=== PATIENT | female | born 1970 | race Caucasian/White ===

== ENCOUNTER 2018-04-02 15:38 | Outpatient (REF) | payer OTHER, SELFPAY ==
--- NOTE | 2018-04-02 14:30 | PAPFT_PTH ---
PATIENT: Taylor Chou LOC: [facility] U#:[id number] AGE/SX: 47/F ROOM: RE04/02/[address]: Brandie Weeks : 1970 BED: DIS: 04/02/2018 SPEC #: [id number] RECD: 04/02/18 17:55 STATUS: KARMA REJez #: [id number] BRYAN: 04/02/18 14:[address]: Brandie Weeks DEPT: [facility] Cytology RECD BY: Edith Garcia Tissues: 1 - CX/ENDOCX FOR PAP SMEARS Procedures: PAP THIN PREP/UVM Screening HPV DNA PROBE Comments: [id number]
== END 2018-04-02 15:58 ==
LOC: NCHCN 15:38
PROVIDERS: PCP Nurse Practitioner Family; Visit Provider Nurse Practitioner Family
DX: Z00.00 Encounter for general adult medical examination without abnormal findings (principal); Z12.4 Encounter for screening for malignant neoplasm of cervix; Z11.51 Encounter for screening for human papillomavirus (HPV)
CPT/HCPCS: 88142; 87624

== ENCOUNTER 2019-04-18 12:05 | Outpatient (REF) | payer OTHER, SELFPAY ==
[2019-04-18 12:30] LABS: Anion Gap 8.8 mmol/L (3-11); BUN 13 mg/dL (7-18); CO2 30.2 mmol/L (21.0-32.0); CREATININE 0.85 mg/dL (0.55-1.02); Calcium 8.7 mg/dL (8.5-10.1); Calculated LDL 137 mg/dL (<100); Chloride 104 mmol/L (98-107); Cholesterol 205 mg/dL (<200); Glucose 85 mg/dL (74-106); HDL Cholesterol 38 mg/dL (40-60); Potassium 4.1 mmol/L (3.5-5.1); Sodium 143 mmol/L (136-145); Triglyceride 150 mg/dL (<150)
== END 2019-04-18 12:25 ==
LOC: NCHCN 12:05
PROVIDERS: PCP Nurse Practitioner Family; Visit Provider Nurse Practitioner Family
DX: E78.1 Pure hyperglyceridemia (principal); Z00.00 Encounter for general adult medical examination without abnormal findings
CPT/HCPCS: 80048; 80061

== ENCOUNTER 2020-03-20 11:41 | Emergency (ER) | payer SELFPAY ==
--- NOTE | 2020-03-20 11:43 | NUR.NOTE ---
Nursing Note: per funds transfer clerk--left atrium area when told by them that she could not have a visitor come in with her.
== END 2020-03-20 11:45 | disposition left before discharge ==
LOC: ER 11:44
PROVIDERS: PCP Nurse Practitioner Family
DX: Z53.21 Procedure and treatment not carried out due to patient leaving prior to being seen by health care provider (principal)

== ENCOUNTER 2020-03-20 13:52 | Emergency (ER) | payer OTHER, SELFPAY ==
[2020-03-20] VITALS (40 sets, daily range): BP systolic 106–144; BP diastolic 51–97; PULSE 53–73; RESP 12–22; TEMP 36.3–36.6; O2SAT 98–100
--- NOTE | 2020-03-20 13:45 | RT.EKG_ITS ---
APPROVED REPORT Exam: Resting ECG Patient Location: E HR:66 bpm ECG Measurements Heart Rate 66 AXIS VA 171 P 82 QRSd 115 QRS 54 QT 398 T 17 QTc 418 Conclusion Sinus rhythm. Incomplete right bundle branch block. Nonspecific ST changes lateral
--- NOTE | 2020-03-20 13:56 | ED.GENADUL_ITS ---
Discharge Plan Disposition Patient Disposition: HOME Condition: Improving Discharge Details Clinical Impression: Atypical chest pain Primary Care Provider: Brandie Weeks ED Provider: Tono Benitez Home Meds and New Rx's Prescriptions: Continued multivitamin [Daily Multi-Vitamin] 1 EACH tablet 1 ea PO DAILY RF: 0 ascorbic acid (vitamin C) [Vitamin C] 500 MG tablet 500 mg PO DAILY RF: 0 cholecalciferol (vitamin D3) [Vitamin D3] 2,000 UNIT capsule 2,000 unit PO DAILY Qty: 3 RF: 0 omega-3 acid ethyl esters 1 GM capsule 2 gm PO BID Qty: 360 RF: 0 Discharge Instructions Instructions: Chest Pain (ED) Additional Instructions: Please follow-up for outpatient stress testing as ordered today. Return to the ER if you have recurrent chest pain, difficulty breathing, or any other acute concerns. Resume normal routine and activities. Discharge Data Discharge Date/Time-TO BE ENTERED AT DEPARTURE: 03/20/20 17:52 Medical Decision Making <UGO Tabares - Last Filed: 03/21/20 08:04> Patient is a pleasant 49-year-old female without significant past medical history, presenting today with complaints of chest tightness. She reports that the chest tightness began approximately 3 and half hours prior to arrival while moving things develop in her garage. She reports that at that time, the chest tightness would have been more of a pain. She reports that this subsequently improved after cessation of her activities. She sought care at an urgent care. The urgent care advised that she be seen in the emergency department. She had come here initially and then when she was informed that her would not be allowed in the department secondary to concern for COVID-19 pandemic, patient left. She reports that her pain is sided. She is asymptomatic until she was eating lunch. States that when eating lunch her tightness began again but that this time it was much less. Describes the pain as a 1 out of 10 and indicates to be central aspect of her chest is area of discomfort. She denies any increased pain with deep inspiration. The short of breath. Pain does not radiate up into the right side of her neck. Denies any headaches. Denies any nausea or vomiting. Pain did not radiate into her back. No recent travel. No estrogen use. Patient does report being perimenopausal. Patient denies any personal risk factors for cardiac disease. No familial cardiac disease. Patient had excedrine prior to arrival which contains ASA. On exam, patient appears nontoxic. Vital signs are within normal limits. Lungs are clear, normal cardiac exam. 2+ distal pulses all extremities. No calf tenderness EKG reviewed by Dr. Benitez. Patient is in a normal sinus rhythm. Nonspecific ST changes are noted. No previous for comparison. I considered ACS as the source of her discomfort, particularly with the pain rating at the neck. However, she has very low risk factors. Her history is not suggestive of aortic dissection, pericarditis, tamponade, esophageal perforation or pneumothorax. She is not tachycardic, hypoxic, short of breath, or having pleuritic pain. Very low suspicion for pulmonary embolism. I did consider noncardiac source such as GERD the patient denies any change, either worsening or improvement after eating. Plan for baseline lab. Chest x-ray. Consistent with patient Labs reviewed. Patient placed on Clavulin 4.32, fairly unchanged from 2016. Coags are normal. Initial troponin is less than 0.05. Patient's creatinine is elevated at 1.19. Otherwise no significant abnormalities. Plan for repeat troponin. Chest x-ray reviewed by myself and no significant abnormalities, waiting radiology read. 50 findings with the patient at length. Patient is able to hydrate orally. Unclear if this is what could be driving the patient's creatinine. She will have this rechecked with her primary care. Discussed repeat troponin with the patient that she is agreement. We will continue to m onitor. Heart score is 2, based on age and EKG, putting her in a low risk category. At the end of my shift, repeat troponin is pending. Care transitioned to <Tono Benitez MD - Last Filed: 03/20/20 17:43> Patient seen, interviewed [id number], discussed with Ms. Hsieh. I agree with her assessment and plan. At change of shift, the patient was signed out to me. She was observed on a potline monitor, had no further symptoms or complaints. A repeat troponin was obtained and negative. Given her age and somewhat atypical presentation, I will order an outpatient stress test. She is stable and improved, appropriate for discharge to home at this time. She understands return precautions. HPI <UGO Tabares - Last Filed: 03/21/20 08:04> General Mode of arrival: ambulatory . Date/Time Provider Initiated Documentation: 03/20/20 13:52 . Limitations to Documentation: no limitations . Information obtained by: patient and RN notes reviewed . History of Present Illness 49 year old F presents to the emergency department with the chief complaint of chest tightness, described as mild, with intensity rated at 1. Quality is described as other (tight), and is localized to the chest. Patient neck (right side). Patient started experiencing this hour(s) (1100) and it has been intermittent. No relieving factors improve symptom(s), No exacerbating factors reported . Patient notes chest pain; denies cough, fever/chills, headaches, loss of appetite, nausea/vomiting and shortness of breath. Patient did receive the following treatments prior to arrival, Aspirin Related Data Home Medications Medication Instructions Recorded Confirmed ascorbic acid (vitamin C) [Vitamin 500 mg PO DAILY 05/27/14 03/20/20 C] cholecalciferol (vitamin D3) 2,000 unit PO DAILY #3 05/27/14 03/20/20 [Vitamin D3] multivitamin [Daily Multi-Vitamin] 1 ea PO DAILY 05/27/14 03/20/20 omega-3 acid ethyl esters 2 gm PO BID #360 tab-cap 11/19/14 03/20/20 Allergies Allergy/AdvReac Type Severity Reaction Status Date / Time No Known Drug Allergies Allergy Unverified 03/20/20 14:11 Review of Systems <UGO Tabares - Last Filed: 03/21/20 08:04> Constitutional Constitutional: Reports as per HPI, Denies chills, Denies fever(s), Denies headache(s), Denies lethargy and Denies poor appetite Eyes Eyes: Denies change in vision ENT Ears, Nose, Mouth, and Throat: Denies dizziness and Denies headache(s) Cardiovascular Cardiovascular: Reports as per HPI, Denies dyspnea and Denies dyspnea on exertion Respiratory Respiratory: Reports as per HPI, Denies chest congestion, Denies cough, Denies pain on inspiration, Denies pain with cough, Denies dyspnea, Denies dyspnea on exertion and Denies wheezing Gastrointestinal Gastrointestinal: Reports as per HPI, Denies abdominal pain, Denies diarrhea, Denies nausea and Denies vomiting Musculoskeletal Musculoskeletal: Reports as per HPI and Denies back pain Integumentary/Breasts Skin/Breast: Reports as per HPI and Denies rash Neurologic Neurologic: Reports as per HPI, Denies dizziness and Denies headache(s) Allergic/Immunologic Allergic/Immunologic: Denies wheezing PFSH <UGO Tabares - Last Filed: 03/21/20 08:04> Surgical History Oophrectomy, Left (06/09/11) Family History Mother Diabetes Social History Smoking/Tobacco Use Status: Never Smoking risk assessment performed?: Yes Alcohol Intake: never Drug use: Never Substance use type: does not use Do you feel safe at home: Yes Do you feel safe in your relationship?: Yes Exam <UGO Tabares - Last Filed: 03/21/20 08:04> Const General: cooperative, healthy appearing, comfortable, no acute distress and well developed Nutritional Appearance: average body habitus and well nourished Orientation: alert, awake and oriented x3 HENMT Head: normal to inspection Ears: hearing grossly normal bilaterally Mouth: moist mucous membranes Chest Chest: normal inspection of the chest, normal palpation of entire chest wall and no crepitus Resp Effort & Inspection: normal respiratory effort, able to speak in complete sentences and no respiratory distress Auscultation: clear to auscultation bilaterally, no rales, no rhonchi and no wh eezes Cardio Rate: regular rate Rhythm: regular rhythm Heart Sounds: S1 normal and S2 normal GI Inspection: normal to inspection, no edema and non-distended Palpation: soft, no hepatosplenomegaly, not firm, no guarding, not rigid and nontender Auscultation: normal bowel sounds Back/Spine/Pelvis Back: no CVA tenderness Thoracic/Lumbar Spine: thoracic and lumbar spine normal to inspection Skin General skin exam: no rashes or lesions noted Trauma: no lacerations or abrasions Neuro General: patient alert, patient awake and patient oriented x3 Cognition: normal cognition Speech: speech normal Gait: normal gait Extrem General: normal to inspection, capillary refill normal, no pedal edema, no calf tenderness and normal gait Psych Appearance: grossly normal and well kempt Mental Status: mental status grossly normal Speech and Movement: speech and movement normal Sign Out <UGO Tabares - Last Filed: 03/21/20 08:04> Sign Out Data: Sign Out Comment: Care transition to Dr. Benitez with repeat troponin pending Last updated by Samira Hsieh PA at 03/20/20 15:34
[2020-03-20 14:26] LABS: Abs Immature Grans 0.01 10^3/uL (0.0-0.06); Absolute Basophil Count 0.01 10^3/uL (0.0-0.2); Absolute Lymphocyte Count 1.13 10^3/uL (1.2-3.4); Absolute Monocyte Count 0.29 10^3/uL (0.1-0.8); Absolute Neutrophil Count 2.68 10^3/uL (1.2-6.7); Basophils % 0.2; Eosinophils % 2.4; HCT 41.5 % (36.0-46.0); Immature Grans % 0.2; Lymphocytes % 26.8; MCH 28.6 pg (27.0-33.0); MCHC 33.7 % (32.0-36.0); MCV 84.9 fL (80-95); MPV 9.2 fL (8.0-11.0); Monocytes % 6.9; Neutrophils % 63.5; Nucleated RBC 0 %; Platelet Count 161 10^3/uL (130-400); RBC 4.89 10^6/uL (3.93-5.22); RDW 12.3 % (11.7-14.6); RDW-SD 37.7 fL; WBC 4.22 10^3/uL (4.4-10.8)
[2020-03-20 14:38] LABS: PTT Activated 26.5 sec (21.0-27.5); Prothrombin Time 10.5 sec (9.3-11.0)
[2020-03-20 14:40] LABS: ALT 19 U/L (14-59); AST 12 U/L (15-37); Alkaline Phosphatase 65 U/L (46-116); Anion Gap 7.7 mmol/L (3-11); BUN 14 mg/dL (7-18); Bilirubin, Total 0.6 mg/dL (0.2-1.0); CO2 29.3 mmol/L (21.0-32.0); CREATININE 1.19 mg/dL (0.55-1.02); Calcium 8.9 mg/dL (8.5-10.1); Chloride 104 mmol/L (98-107); Estimated GFR 48.01 (mL/min/1.73m2); Glucose 104 mg/dL (74-106); Magnesium 2.2 mg/dL (1.8-2.4); Potassium 3.8 mmol/L (3.5-5.1); Sodium 141 mmol/L (136-145); Total Protein 6.9 g/dL (6.4-8.2)
[2020-03-20 14:44] LABS: Troponin I < 0.05 ng/mL (<0.06)
--- NOTE | 2020-03-20 14:56 | DI.RAD_ITS ---
EXAM: XR CHEST 2V PA LATERAL CLINICAL HISTORY: CP. TECHNIQUE: 2D digital imaging was performed. COMPARISON: No exams were available for comparison FINDINGS: Heart size is normal. The mediastinum is not widened. Lungs are clear. No infiltrates nor pleural effusions. IMPRESSION: No acute pulmonary findings. DATA REPOSITORY: RADIATION DOSE DELIVERED:
--- NOTE | 2020-03-20 15:12 | DI.VRAD_ITS ---
PROCEDURE INFORMATION: Exam: XR Chest, 2 Views Exam date and time: 03/20/2020 2:00 PM Age: 49 years old Clinical indication: Chest pressure; Patient HX: Chest pain radiating up her neck. TECHNIQUE: Imaging protocol: XR of the chest Views: 2 views. COMPARISON: No relevant prior studies available. FINDINGS: Lungs: Small bilateral calcified granulomas in the mid lung tellez. The lungs are otherwise clear without opacity or suspicious parenchymal finding. Pleural space: Unremarkable. No pleural effusion. No pneumothorax. Heart/Mediastinum: Unremarkable. No cardiomegaly. Bones/joints: Unremarkable. IMPRESSION: No acute cardiopulmonary process. Dictated and Authenticated by: Sophia Fuentes MD. Ordering:MAXX Hogan MD
--- NOTE | 2020-03-20 17:00 | RT.EKG_ITS ---
APPROVED REPORT Exam: Resting ECG Patient Location: E HR:57 bpm ECG Measurements Heart Rate 57 AXIS NV 178 P 79 QRSd 118 QRS 43 QT 410 T 21 QTc 398 Conclusion Sinus bradycardia Incomplete right bundle branch block Nonspecific ST changes
[2020-03-20 17:30] LABS: Troponin I < 0.05 ng/mL (<0.06)
[2020-03-22 12:42] LABS: COVID-19 RT-PCR UVMMC Result Negative (Negative)
--- NOTE | 2020-03-22 13:19 | NUR.NOTE ---
03/22/20 @ 5865 after verifying patient's identity, relayed negative covid test results to her.
== END 2020-03-20 17:52 | disposition home or self-care (01) ==
PROVIDERS: Physician Assistant; Emergency Provider Emergency Medicine; PCP Nurse Practitioner Family
DX: R07.89 Other chest pain (principal); Z03.818 Encounter for observation for suspected exposure to other biological agents ruled out
CPT/HCPCS: 36415; 80053; 93005; 99285; U0003; 71046; 83735; 84484; 85025; 85610; 85730; 93010

== ENCOUNTER 2020-03-23 10:29 | Outpatient (CLI) | payer OTHER, SELFPAY ==
--- NOTE | 2020-03-23 10:00 | ETT_ITS ---
APPROVED REPORT Exam: Exercise Treadmill Patient Location: Out-Patient Room/Bed: Stress Nurse: Meredith Estes RN Ordering Provider:APOLONIA SAAVEDRA, Contact Number: [phone] BMI: 28.24 Baseline Rhythm: Sinus Bradycardia Comment: incomplete RBBB Indications: chest pain Medical History Medical History: Hyperlipidemia Cardiac Medications: None Allergies: NKA Cardiac Risk Factors: Hyperlipidemia, family hx Previous Cardiac Procedures: None Pretest Chest Pain Characteristics: None Exercise History: Sedentary Physical Disabilities: None Lung Sounds: Clear to auscultation Heart Sounds: Regular Stress Test Details Test: Exercise stress testing was performed using a Larry protocol. Rest Stress HR Resting HR Supine: 59 bpm Max Heart Rate (APMHR): 170 bpm Resting HR Standin/82 bpm Target HR (85% APMHR): 144 bpm Max HR Achieved: 171 bpm % of APMHR: 100 Recovery HR: 92 bpm HR response to stress: Normal HR response to stress BP Resting BP Supine: 126/82 mmHg Resting BP Standin/80 mmHg Max BP: 180/72 mmHg Recovery BP: 130/76 mmHg BP response to stress: Normal blood pressure response to stress. ECG Resting ECG: Sinus Bradycardia, incomplete RBBB Ectopy: None Stress ECG: Sinus Tachycardia ST Change: Horizontal ST depression Lead(s): II, III, aVF, V4, V5, V6 Stage: [address] Deviation: 1 mm Arrhythmia: None Recovery ECG: Sinus Rhythm Recovery ST Change: Horizontal ST depression Lead(s): lateral leads Recovery ST Deviation: 1 mm Recovery Arrhythmia: None Clinical Reason for Termination: Fatigue Stress Symptoms: General Fatigue Exercise duration: 12 min00 sec Highest Stage Reached: Stage 5: 5.0 mph at 18% grade. Exercise capacity: 13.48 METs Salmeron Treadmill Score: 6 Rate Pressure Product: [id number] Stress ECG Conclusion 1. The patient exercised for 12 minutes (13 METS) 2. Patient had normal heart rate and blood pressure response. There were no symptoms suggestive of i schemia. 3. The patient developed [address] depressions in the inferior and lateral leads. These res olved about 2 minutes into recovery. 4. The Salmeron Score (6) estimates an annual cardiovascular mortality of 0% and a five year survival of 95%. Using the Salmeron Score there is a low probability of any angiographic coronary disease. Salmeron Treadmill Score is 6 which is Low risk. Stress Test Summary STAGE Time (mins) Speed (mph) Grade (%) HR BP SYMPTOMS METS Supine 59 126/82 Standing 65 120/80 1 3 1.7 10 90 128/78 4.6 2 6 2.5 12 113 162/70 7 3 9 3.4 14 152 180/72 10.2 4 12 4.2 16 169 12.9 1 min recovery 130 166/68 3 min recovery 98 150/72 6 min recovery 92 130/76
== END 2020-03-23 10:49 ==
PROVIDERS: PCP Nurse Practitioner Family; Visit Provider Emergency Medicine
DX: R07.9 Chest pain, unspecified (principal); E78.5 Hyperlipidemia, unspecified; Z82.49 Family history of ischemic heart disease and other diseases of the circulatory system
CPT/HCPCS: 93017

== ENCOUNTER 2022-03-23 01:30 | Outpatient (CLI) | payer BC, SELFPAY ==
--- NOTE | 2022-03-23 16:00 | DI.MAMMO_ITS ---
Exam(s) MAMMO SCREENING EXAM: MAMMO SCREENING CLINICAL HISTORY: SCREENING, [facility],Z00.00. TECHNIQUE: Bilateral full field digital CC and MLO mammographic images were obtained with 3D tomosyn thesis and utilizing computer aided detection (CAD). COMPARISON: Baseline mammogram FINDINGS: Fibroglandular tissue is moderately dense. There are no obvious spiculated masses nor malignant appearing microcalcification groups. There is no significant architectural distortion nor skin thickening-retraction. IMPRESSION: No radiographic evidence of malignancy. BI-RADS Category 1 - Negative Breast Density - Category C - Heterogeneously dense Breast density Category C or D implies that the patient has dense breast tissue. Dense breast tissue can make it harder to find cancer on a mammogram. Dense breast tissue is also associated with an incr eased risk of breast cancer. This information about the result of the mammogram report was provided to the patient to raise their awareness. Use this report when you speak with the patient about their risks for breast cancer, which includes their family history. At that time, you may recommend additional screening tests (Ultrasoun d or MRI) as these tests may add significant information. A negative radiographic report should not delay biopsy if a dominant or clinically suspicious mass is present. Up to ten percent of cancers are not identified on mammography. A negative report may reinforce clinical impression. Adenosis and dense breasts may obscure an underlying neoplasm. False positive reports average 6 to 10%. Patient will receive a letter notifying them of these results.
== END 2022-03-23 01:50 ==
LOC: DI 01:30
PROVIDERS: PCP Nurse Practitioner Family; Visit Provider Nurse Practitioner Family
DX: Z12.31 Encounter for screening mammogram for malignant neoplasm of breast (principal); R92.8 Other abnormal and inconclusive findings on diagnostic imaging of breast
CPT/HCPCS: 77063; 77067

== ENCOUNTER 2022-10-13 02:44 | Outpatient (CLI) | payer BC, SELFPAY ==
[2022-10-13 07:59] LABS: HCT 37.5 % (36.0-46.0); HGB 12.3 g/dL (11.2-15.7); MCH 27.3 pg (27.0-33.0); MCHC 32.8 % (32.0-36.0); MCV 83 fL (80-95); MPV 8.8 fL (8.0-11.0); Platelet Count 157 10^3/uL (130-400); RBC 4.51 10^6/uL (3.93-5.22); RDW 13.5 % (11.7-14.6); RDW-SD 40.5 fL; WBC 2.92 10^3/uL (4.4-10.8)
[2022-10-13 08:21] LABS: BUN 14 mg/dL (7-18); Calcium 9.1 mg/dL (8.5-10.1); Calculated LDL 104 mg/dL (<100); Chloride 107 mmol/L (98-107); Cholesterol 188 mg/dL (<200); Estimated GFR 67.78 (mL/min/1.73m2); Glucose 104 mg/dL (74-106); HDL Cholesterol 37 mg/dL (40-60); Potassium 4.1 mmol/L (3.5-5.1); Sodium 144 mmol/L (136-145); TSH (W/Ref FT4) 1.57 uIU/mL (0.36-3.74); Triglyceride 236 mg/dL (<150)
== END 2022-10-13 02:45 | disposition home or self-care (01) ==
LOC: LBO 02:44
PROVIDERS: PCP Nurse Practitioner Family; Visit Provider Nurse Practitioner Family
DX: Z00.00 Encounter for general adult medical examination without abnormal findings (principal); E78.5 Hyperlipidemia, unspecified; R07.9 Chest pain, unspecified; N95.1 Menopausal and female climacteric states
CPT/HCPCS: 36415; 80048; 80061; 85027; 84443

== ENCOUNTER 2023-12-04 12:55 | Outpatient (REF) | payer BC, SELFPAY ==
--- NOTE | 2023-12-04 11:50 | PAPFT_PTH ---
PATIENT: Taylor Chou LOC: [facility] U#:[id number] AGE/SX: 53/F ROOM: RE12/04/[address]: Jesi Conti : 1970 BED: DIS: 12/04/2023 SPEC #: [id number] RECD: 12/04/23 18:40 STATUS: KARMA REQ #: [id number] BRYAN: 12/04/23 11:[address]: Jesi Conti DEPT: [facility] Cytology RECD BY: Edith Garcia ENTERED: 12/04/23 18:40 SP TYPE: PAPFT OTHR DR: Unknown,Unknown Tissues: 1 - CX/ENDOCX FOR PAP SMEARS Procedures: PAP THIN PREP/UVM Screening HPV DNA PROBE Comments: [id number] (HPV 16 & 18/45)
== END 2023-12-04 12:56 | disposition home or self-care (01) ==
LOC: NCHCN 12:55
PROVIDERS: Visit Provider Nurse Practitioner Family
DX: Z11.51 Encounter for screening for human papillomavirus (HPV) (principal); Z01.419 Encounter for gynecological examination (general) (routine) without abnormal findings
CPT/HCPCS: 88142; 87624